=== PATIENT | female | born 1945 | race Caucasian/White ===

== ENCOUNTER → 2017-05-08 | Outpatient (CLI) | payer OTHER ==
[~2017-05-08] MED LIST: COATED ASPIRIN325 M1 PO; COZAAR PO; FISH OIL 1,001000 M1 PO; LIPITOR PO; METOPROLOL SUCC50 MG PO; MULTI VITAMIN1 EACH PO; NITROGLYGERIN0.4 MG SL; VITAMIN D2000 UNIT PO
--- NOTE | ~2017-05-08 | CR126 ---
[facility] A Service of [facility] RADIOLOGY TEXT RESULTS PATIENT: BREEZY GARCIA LOCATION: [facility] : 41 UNIT #: [id number] AGE: [address]: Demarcus Hernandez MD SEX: F ORDER DR: [id number] [facility] [address] [place], [place] [address] [id number] O MR#: [id number] Acc #: [id number] NAME: BREEZY GARCIA : 1945 SEX: F STUDY DATE/TIME: 05/08/2017 14:31 UNIT: [facility] ROOM: STUDY DESCRIPTION: CR Foot Complete Min 3 View Lt Attending Physician: Adore Hernandez M.D. Ordering Physician: Adore Hernandez M.D. Primary Care Physician: Dedra Ha M.D. MEDICAL IMAGING REPORT This report is preliminary unless electronic signature is present EXAMINATION 3 views of the left foot DATE 05/08/2017 HISTORY 71-year-old female with left second toe fracture 2 days ago, hit toe on a chair. Left foot pain and swelling greatest at the second digit. COMPARISON None. FINDINGS No acute fracture is visualized. More specifically, no displaced left second toe fracture is evident. 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 No unexpected retained radiopaque foreign body is identified within the soft tissues. IMPRESSION 1. Mild degenerative changes of the toes. No acute abnormality is seen within the left foot. The left second toe appears intact. Dictated by... Nancy Donnelly M.D. THIS IS AN ELECTRONICALLY VERIFIED REPORT Nancy Donnelly M.D. at 05/12/2017 8:36 AM [facility]/sommer TD: 05/09/2017 15:02 JOB #: [id number] [facility] A Service of [facility] RADIOLOGY TEXT RESULTS PATIENT: BREEZY GARCIA LOCATION: [facility] : 41 UNIT #: [id number] AGE: [address]: Demarcus Hernandez MD SEX: F ORDER DR: MEDICAL IMAGING REPORT Page 1 of 1 COPY
== END | disposition home or self-care (01) ==
LOC: CRAD 14:22
DX: S92.502A Displaced unspecified fracture of left lesser toe(s), initial encounter for closed fracture (principal)
CPT/HCPCS: 73630